=== PATIENT | male | born 1980 | race Caucasian/White ===

== ENCOUNTER 2016-12-04 14:47 | Emergency (ER) | payer OTHER ==
[2016-12-04 16:11] LABS: BASOPHIL 0.1 % (0-2); EOSINOPHIL 0 % (0-5); HCT 46.2 % (42.0-52.0); HGB 16.2 g/dl (13.2-18.0); MCH 27.9 pg (25.0-31.0); MCHC 35.1 g/dL (32.0-36.0); MCV 79.5 fL (78.0-100.0); MONOCYTE 4.6 % (0-12); MPV 9.6 fL (6.0-9.5); NEUTROPHIL 90.3 % (41-80); PLT 241 K/uL (150-400); RBC 5.81 M/uL (4.70-6.00)
[2016-12-04 16:27] LABS: LACTIC ACID 1.6 mmol/L (0.5-2.2)
[2016-12-04 16:31] LABS: ALBUMIN 4.5 g/dL (3.5-5.0); BILIRUBIN - TOTAL 1.3 mg/dL (0.1-1.0); CREATININE 1.3 mg/dL (0.7-1.2); MAGNESIUM 1.97 mg/dL (1.40-2.10); POTASSIUM 3.9 mmol/L (3.5-5.1); TOTAL PROTEIN 7.5 g/dL (6.4-8.3)
[2016-12-04 16:55] LABS: BILIRUBIN 2+ mg/dL (NEGATIVE); BLOOD TRACE-INTACT Ery/uL (NEGATIVE); CLARITY CLEAR (CLEAR); COLOR YELLOW (YELLOW); GLUCOSE (U) NORMAL (NORMAL); KETONE (U) 1+ (SMALL) mg/dL (NEGATIVE); LEUKOCYTES NEGATIVE Leu/uL (NEGATIVE); NITRITE POSITIVE (NEGATIVE); PROTEIN 2+ mg/dL (NEGATIVE); SPECIFIC GRAVITY >=1.030 (1.001-1.030); pH 5.5 (5.0-9.0)
[2016-12-04 16:59] LABS: BACTERIA 3+; MUCOUS LARGE
== END 2016-12-04 20:54 | disposition other institution (70) ==
LOC: FER 14:47
PROVIDERS: Internal Medicine
DX: K35.2 Acute appendicitis with generalized peritonitis (principal); N39.0 Urinary tract infection, site not specified
CPT/HCPCS: 36415; 80053; 81001; 82150; 83605; 83690; 83735; 85025; 87040; 87088; J1170; J1956; J2405